=== PATIENT | female | born 1990 ===

== ENCOUNTER 2018-10-16 06:18 | Inpatient (IN) ==
[2018-10-16] MEDS ORDERED: ONDANSETRON 4 MG/2 ML VIAL IV PRN (06:30)
[2018-10-16] MEDS ORDERED: OXYTOCIN/LR 20 UNIT/1,000 ML BAG IV SCH (06:30)
[2018-10-16 06:57] LABS: Basophils % 0.5 % (0.0-0.8); Eosinophils # 0.1 10*3/uL (0.0-0.87); Eosinophils % 1.4 % (0.00-10.9); Hemoglobin 11.6 GM/DL (12.0-16.0); Immature Granulocytes % 0.4 %; Immature Granulocytes Absolute 0.02 #; Lymphocytes # 1.6 10*3/uL (1.4-4.0); Lymphocytes % 27.3 % (21.3-54.2); Mean Corpuscular HGB Conc 33.1 GM/DL (32-36); Mean Corpuscular Volume 87.1 FL (87-102); Mean Platelet Volume 10.5 FL (9.6-12.0); Monocytes % 7.4 % (1.7-12.7); Platelet Count 264 T/CUMM (130-400); Red Blood Count 4.02 MC/CUMM (3.8-5.5); Red Cell Distribution Width 14.1 % (9.3-17.3); White Blood Count 5.7 T/CUMM (4-12)
[2018-10-16 07:16] LABS: Albumin 2.5 G/DL (3.4-5.0); Bilirubin,Total 0.4 MG/DL (0.2-1.0); Calcium 8.8 MG/DL (8.5-10.1); Osmolality,Calculated 273.5 MOS/KG (273-304); Uric Acid 4.1 MG/DL (2.6-6.0)
[2018-10-16] MEDS: LACTATED RINGERS 1,000 ML IV SCH ×2 (07:30→09:13)
[2018-10-16] MEDS ORDERED: BUTORPHANOL 1 MG/ML VIAL IV PRN (07:48)
[2018-10-16] MEDS ORDERED: diphenhydrAMINE 50 MG/1 ML VIAL IV PRN ×2 (07:49)
[2018-10-16] MEDS ORDERED: hydrOXYzine HCL 25 MG/1 ML VIAL IM PRN (07:49)
[2018-10-16] MEDS ORDERED: CITRIC ACID/SODIUM CITRATE 30 ML UDCUP PO ONE (07:49)
[2018-10-16] MEDS ORDERED: PROMETHAZINE 25 MG/1 ML VIAL IM ONE (07:49)
[2018-10-16] MEDS ORDERED: FAMOTIDINE 20 MG/2 ML VIAL IV ONE (07:49)
[2018-10-16] MEDS ORDERED: NALOXONE 0.4 MG/ML VIAL IV PRN (07:49)
[2018-10-16] MEDS ORDERED: ePHEDrine 50 MG/ML AMP IV PRN (07:49)
[2018-10-16] MEDS ORDERED: LACTATED RINGERS 1,000 ML IV PRN (07:49)
[2018-10-16] MEDS ORDERED: fentaNYL 2 MCG/ROPIV 0.2% EPID 100 ML EPIDURAL SCH (08:00)
[2018-10-16] MEDS ORDERED: AMPICILLIN INJ 2,000 MG in SODIUM CHLORIDE 0.9% 100 ML IV ONE (09:00)
[2018-10-16 12:28] LABS: Apearance,Urine CLEAR (Clear); Bacteria,Urine Occasional /HPF (Few); Bilirubin,Urine Negative (Negative); Blood, Urine Negative (Negative); Glucose,Urine (UA) Negative (Negative); Ketones,Urine Negative (Negative); Mucus,Urine Occasional /LPF (Occasional); Nitrite,Urine Negative (Negative); Protein,Urine Negative; RBC,Urine <1 /HPF (0-4); Squamous Epithelial Cell,Urine Occasional /HPF (0-10); Urine Color Yellow (Yellow); Urine Specific Gravity 1.014 (1.001-1.035); Urine Urobilinogen < 2.0 EU/DL (0.2-1.0)
[2018-10-16] MEDS ORDERED: AMPICILLIN INJ 1,000 MG in SODIUM CHLORIDE 0.9% 100 ML IV SCH (13:00)
[2018-10-16] MEDS ORDERED: TERBUTALINE 1 MG/1 ML VIAL SUBCUT ONE ×2 (16:50→16:51)
[2018-10-16] MEDS ORDERED: OXYTOCIN 10 UNIT/ML VIAL IM ONE (16:52)
[2018-10-16] MEDS ORDERED: OXYTOCIN/LR 30 UNIT/1,000 ML BAG IV ONE ×2 (16:52→16:53)
[2018-10-16] MEDS ORDERED: MORPHINE 10 MG/10 ML VIAL ONE (16:53)
[2018-10-16] MEDS ORDERED: PHENYLEPHRINE 1 MG/10 ML SYRINGE IV ONE ×2 (16:53→17:40)
[2018-10-16] MEDS ORDERED: LIDOCAINE MPF 2% /EPI 20 ML VIAL ONE (16:54)
[2018-10-16] MEDS ORDERED: KETOROLAC 60 MG/2 ML VIAL IM ONE (16:54)
[2018-10-16] MEDS ORDERED: ceFAZolin 2,000 MG in SYRINGE 1 EACH IV ONE (17:00)
[2018-10-16] MEDS ORDERED: CARBOPROST TROMETHAMINE 250 MCG/ML AMP IM ONE (17:31)
[2018-10-16] MEDS ORDERED: SODIUM CHLORIDE 0.9% 1,000 ML IV PRN (17:34)
[2018-10-16] MEDS ORDERED: TRANEXAMIC ACID 1,000 MG/10 ML VIAL ONE (17:40)
[2018-10-16] MEDS ORDERED: ALBUMIN 5% 12.5 GM/250 ML VIAL IV ONE (17:40)
[2018-10-16 17:53] LABS: Cord Arterial Blood HCO3 18.5 MMOL/L
[2018-10-16 17:56] LABS: Cord Venous Blood HCO3 19.9 MMOL/L; Cord Venous Blood PCO2 47.5 MMHG; Cord Venous Blood PO2 25.3
[2018-10-16] MEDS ORDERED: HYDROmorphone 2 MG/1 ML VIAL IV PRN (19:18)
[2018-10-16] MEDS ORDERED: oxyCODONE/ACETAMINOPHEN 5-325 MG TABLET PO PRN (23:19)
[2018-10-17] MEDS: LACTATED RINGERS 1,000 ML IV SCH (00:23)
[2018-10-17] MEDS ORDERED: ACETAMINOPHEN 325 MG TABLET PO PRN ×2 (00:39→00:49)
[2018-10-17] MEDS: IBUPROFEN 800 MG TABLET PO PRN (02:05)
[2018-10-17 04:29] LABS: Basophils % 0.2 % (0.0-0.8); Eosinophils % 0.1 % (0.00-10.9); Hematocrit 26.7 VOL% (35.7-47.0); Immature Granulocytes % 0.2 %; Immature Granulocytes Absolute 0.02 #; Lymphocytes # 1.5 10*3/uL (1.4-4.0); Lymphocytes % 17.4 % (21.3-54.2); Mean Corpuscular HGB Conc 33.7 GM/DL (32-36); Mean Corpuscular Volume 85.6 FL (87-102); Monocytes % 6.5 % (1.7-12.7); Neutrophils % 75.6 % (38.7-73.9); Red Cell Distribution Width 14.3 % (9.3-17.3)
[2018-10-17 04:34] LABS: Platelet Count 165 T/CUMM (130-400); Red Blood Count 3.12 MC/CUMM (3.8-5.5); White Blood Count 8.6 T/CUMM (4-12)
[2018-10-17] MEDS: METOCLOPRAMIDE 10 MG TABLET PO SCH ×3 (07:58→23:44)
[2018-10-17] MEDS: oxyCODONE/ACETAMINOPHEN 5-325 MG TABLET PO PRN ×2 (08:00→21:09)
[2018-10-17] MEDS: DOCUSATE SODIUM 100 MG CAPSULE PO SCH ×2 (08:56→21:07)
[2018-10-17] MEDS: MAGNESIUM HYDROXIDE SUSP 30 ML UDCUP PO SCH ×2 (08:56→21:07)
[2018-10-17] MEDS: FERROUS SULFATE 325 MG TABLET PO SCH ×2 (08:57→21:07)
[2018-10-17] MEDS ORDERED: METOCLOPRAMIDE 10 MG TABLET PO SCH (09:00)
[2018-10-17] MEDS ORDERED: LEVOFLOXACIN INJ 100 ML IV ONE (18:26)
[2018-10-17] MEDS ORDERED: LACTATED RINGERS 1,000 ML IV SCH (18:30)
[2018-10-17] MEDS: LEVOFLOXACIN INJ 500 MG in PREMIX 1 EACH IV SCH (18:39)
[2018-10-17 18:57] LABS: Basophils % 0.1 % (0.0-0.8); Eosinophils % 0.1 % (0.00-10.9); Hematocrit 27.6 VOL% (35.7-47.0); Hemoglobin 9.2 GM/DL (12.0-16.0); Immature Granulocytes % 0.2 %; Immature Granulocytes Absolute 0.02 #; Lymphocytes # 0.9 10*3/uL (1.4-4.0); Lymphocytes % 10.5 % (21.3-54.2); Mean Corpuscular HGB Conc 33.3 GM/DL (32-36); Mean Corpuscular Volume 86.5 FL (87-102); Mean Platelet Volume 10.8 FL (9.6-12.0); Monocytes % 5.8 % (1.7-12.7); Neutrophils % 83.3 % (38.7-73.9); Platelet Count 173 T/CUMM (130-400); Red Blood Count 3.19 MC/CUMM (3.8-5.5); Red Cell Distribution Width 14.6 % (9.3-17.3); White Blood Count 8.1 T/CUMM (4-12)
[2018-10-18] MEDS: IBUPROFEN 800 MG TABLET PO PRN (01:22)
[2018-10-18] MEDS: LACTATED RINGERS 1,000 ML IV SCH ×3 (01:59→17:53)
[2018-10-18] MEDS: DOCUSATE SODIUM 100 MG CAPSULE PO SCH ×2 (09:07→20:13)
[2018-10-18] MEDS: FERROUS SULFATE 325 MG TABLET PO SCH ×2 (09:07→20:13)
[2018-10-18] MEDS: METOCLOPRAMIDE 10 MG TABLET PO SCH ×2 (09:07→16:45)
[2018-10-18] MEDS: MAGNESIUM HYDROXIDE SUSP 30 ML UDCUP PO SCH ×2 (09:08→20:13)
[2018-10-18] MEDS: oxyCODONE/ACETAMINOPHEN 5-325 MG TABLET PO PRN ×2 (10:49→20:13)
[2018-10-18] MEDS: LEVOFLOXACIN INJ 500 MG in PREMIX 1 EACH IV SCH (19:21)
[2018-10-19] MEDS: METOCLOPRAMIDE 10 MG TABLET PO SCH (00:51)
[2018-10-19 07:24] VITALS: BP 118/68
[2018-10-19] MEDS: oxyCODONE/ACETAMINOPHEN 5-325 MG TABLET PO PRN (07:28)
[2018-10-19] MEDS: DOCUSATE SODIUM 100 MG CAPSULE PO SCH (09:08)
[2018-10-19] MEDS: FERROUS SULFATE 325 MG TABLET PO SCH (09:08)
== END 2018-10-19 11:45 | disposition home or self-care (01) | DRG 540 ==
LOC: N.LDOUT 06:18 → N.LD 06:19 → N.OB 22:25
PROVIDERS: ADMIT Obstetrics & Gynecology; ATTEND Obstetrics & Gynecology
PROC: LDCSECT (ICD-10-PCS; 2018-10-16 16:55)